=== PATIENT | male | born 1980 | race Caucasian/White ===

== ENCOUNTER 2019-05-14 16:50 | Emergency (ER) | payer SELFPAY ==
--- NOTE | 2019-05-14 18:17 | RAD REPORT ---
EXAM DESCRIPTION: RAD -Hand Left 3 View - 05/14/2019 6:10 pm CLINICAL HISTORY: Left hand pain status post injury FINDINGS: No fracture or dislocation is seen. 2 millimeter density lies along the dorsal aspect of the wrist probably chronic calcification. A fore ign body can also have this appearance and should be correlated clinically
[2019-05-14] MEDS ORDERED: LIDOCAINE 1% MPF 5 ML VIAL ONE (18:50)
[2019-05-14] MEDS ORDERED: TETANUS & DIPHTHERIA TOX,ADULT 0.5 ML VIAL ONE (19:07)
--- NOTE | 2019-05-14 20:31 | ER ---
Nurse's Notes [facility] Name: Jj Moreno Age: 38 yrs Sex: Male : 1980 Arrival Date: 05/14/2019 Time: 16:52 Bed 18 Private MD: Diagnosis: Laceration without foreign body of left middle finger without damage to nail Presentation: 05/14 17:35 Presenting complaint: Patient states: He was shutting the door to his shed and he hit aj1 his hand on a sharp piece of metal. Laceration noted to left hand, bleeding lightly. Transition of care: patient was not received from another setting of care. Onset of symptoms was May 14, 2019 at 16:00. Risk Assessment: Do you want to hurt yourself or someone else? Patient reports no desire to harm self or others. Initial Sepsis Screen: Does the patient meet any 2 criteria? No. Patient's initial sepsis screen is negative. Does the patient have a suspected source of infection? No. Patient's initial sepsis screen is negative. Care prior to arrival: None. 17:35 Method Of Arrival: Ambulatory aj1 17:35 Acuity: FARIBA 4 aj1 Triage Assessment: 17:36 General: Appears in no apparent distress. uncomfortable, Behavior is calm, cooperative, aj1 appropriate for age. Pain: Complains of pain in left hand. Neuro: Level of Consciousness is awake, alert, obeys commands. Cardiovascular: Patient's skin is warm and dry. Respiratory: Airway is patent Respiratory effort is even, unlabored, Respiratory pattern is regular, symmetrical. Injury Description: Laceration sustained to dorsal aspect of proximal phalanx of left middle finger a small amount of bleeding noted at this time. Historical: - Allergies: 17:36 No Known Allergies; aj1 - Home Meds: 17:36 None [Active]; aj1 - PMHx: 17:36 None; aj1 - PSHx: 17:36 None; aj1 - Immunization history:: Last tetanus immunization: unknown, Flu vaccine is not up to date. - Social history:: Smoking status: Patient/guardian denies using tobacco. - Ebola Screening: : Patient denies travel to an Ebola-affected area in the 21 days before illness onset. Screenin:51 Abuse screen: Denies threats or abuse. Denies injuries from another. Nutritional hb screening: No deficits noted. Tuberculosis screening: No symptoms or risk factors identified. Fall Risk None identified. Assessment: 18:51 General: Appears in no apparent distress. uncomfortable, Behavior is calm, cooperative. hb Pain: Pain currently is 8 out of 10 on a pain scale. Neuro: Level of Consciousness is awake, alert, obeys commands, Oriented to person, place, time, situation. Cardiovascular: Capillary refill < 3 seconds Patient's skin is warm and dry. Respiratory: Airway is patent Respiratory effort is even, unlabored, Respiratory pattern is regular, symmetrical. GI: No signs and/or symptoms were reported involving the gastrointestinal system. : No signs and/or symptoms were reported regarding the genitourinary system. EENT: No signs and/or symptoms were reported regarding the EENT system. Derm: Skin is pink, warm \T\ dry. Musculoskeletal: No signs and/or symptoms reported regarding the musculoskeletal system. Injury Description: Laceration sustained to left hand and dorsal aspect of proximal phalanx of left middle finger is jagged, 2.6 to 7.5 cm long. 19:45 Reassessment: Patient appears in no apparent distress at this time. Patient and/or wh family updated on plan of care and expected duration. Pain level reassessed. Patient is alert, oriented x 3, equal unlabored respirations, skin warm/dry/pink. Vital Signs: 17:36 BP 106 / 81; Pulse 92; Resp 18; Temp 97.8; Pulse Ox 95% on R/A; Weight 92.99 kg (R); aj1 Height 5 ft. 10 in. (177.80 cm) (R); Pain 8/10; 19:30 BP 124 / 82; Pulse 88; Resp 18; Pulse Ox 99% on R/A; wh 17:36 Body Mass Index 29.41 (92.99 kg, 177.80 cm) aj1 ED Course: 16:52 Patient arrived in ED. as 17:36 Triage completed. aj1 17:36 Arm band placed on Patient placed in waiting room, Patient notified of wait time. aj1 18:11 XRAY Hand LEFT 3 View In Process Unspecified. EDMS 18:39 Karlee Navarro FNP-C is PHCP. kb 18:39 Domenica Martínez MD is Attending Physician. kb 18:51 Patient has correct armband on for positive identification. Bed in low position. Call light in reach. Side rails up X 1. 18:54 Elizabeth Caruso, RN is Primary Nurse. 20:00 Assist provider with laceration repair on dorsal aspect of proximal phalanx of left wh middle finger that was between 2.6 to 7.5 cm using sutures. Set up tray. Performed by Karlee GABRIEL Dressed with 4X4s, Patient tolerated well. Patient did not have IV access during this emergency room visit. Administered Medications: 19:22 Drug: Tetanus-Diphtheria Toxoid Adult 0.5 ml {Compounding Technician: [employer] Exp: 11/28/2020. Lot #: [id number]. } Route: IM; Site: right deltoid; 20:38 Follow up: Response: No adverse reaction 20:10 Drug: Lidocaine (1 %) 2 vials {Note: Administered by Karlee Navarro DRAPERY EXAMINER.} Volume: 5 ml; Route: Infiltration; 20:38 Follow up: Response: No adverse reaction Outcome: 20:29 Discharge ordered by . kb 20:40 Discharged to home ambulatory, with family. 20:40 Condition: stable 20:40 Discharge instructions given to patient, family, Instructed on discharge instructions, follow up and referral plans. wound care, Demonstrated understanding of instructions, follow-up care, wound care. 20:41 Patient left the ED. Signatures: Dispatcher [employer] EDMS Karlee Navarro FNP-C FNP-Ckb Johnson, Angela, RN RN [facility] Bree Escalera as Elizabeth Caruso RN RN Martell Contreras Corrections: (The following items were deleted from the chart) 17:39 17:35 Presenting complaint: Patient states: He was shutting the door to his shed and he aj1 hit his hand on a sharp piece of metal. Laceration noted to right hand, bleeding lightly. aj1 17:39 17:36 Pain: Complains of pain in right hand aj aj 17:39 17:36 Injury Description: Laceration sustained to dorsal aspect of proximal phalanx of aj1 right middle finger a small amount of bleeding noted at this time. aj1
--- NOTE | 2019-05-14 20:31 | EDPHYS ---
Physician Documentation [facility] Name: Jj Moreno Age: 38 yrs Sex: Male : 1980 Arrival Date: 05/14/2019 Time: 16:52 Bed 18 Private MD: ED Physician Domenica Martínez HPI: 05/14 22:22 This 38 yrs old Male presents to ER via Ambulatory with complaints of kb Puncture Wound To Hand. 22:22 The patient or guardian reports injury, a laceration, clean. The complaints affect the kb dorsal aspect of proximal phalanx of left middle finger. Context: The problem was sustained at home, resulted from a direct blow, by a door. Onset: The symptoms/episode began/occurred just prior to arrival. Modifying factors: The symptoms are alleviated by nothing, the symptoms are aggravated by nothing. Associated signs and symptoms: The patient has no apparent associated signs or symptoms. Severity of symptoms: At their worst the symptoms were mild, moderate. The patient has not experienced similar symptoms in the past. The patient has not recently seen a physician. Pt reports he hit his hand on a piece of his metal door causing laceration to left hand. Historical: - Allergies: 17:36 No Known Allergies; aj1 - Home Meds: 17:36 None [Active]; aj1 - PMHx: 17:36 None; aj1 - PSHx: 17:36 None; aj1 - Immunization history:: Last tetanus immunization: unknown, Flu vaccine is not up to date. - Social history:: Smoking status: Patient/guardian denies using tobacco. - Ebola Screening: : Patient denies travel to an Ebola-affected area in the 21 days before illness onset. ROS: 22:22 Constitutional: Negative for fever, chills, and weight loss, Neck: Negative for injury, kb pain, and swelling, Cardiovascular: Negative for chest pain, palpitations, and edema, Respiratory: Negative for shortness of breath, cough, wheezing, and pleuritic chest pain, Abdomen/GI: Negative for abdominal pain, nausea, vomiting, diarrhea, and constipation, Back: Negative for injury and pain, MS/Extremity: Negative for injury and deformity, Neuro: Negative for headache, weakness, numbness, tingling, and seizure. 22:22 Skin: Positive for laceration(s), of the dorsal aspect of proximal phalanx of left middle finger. Exam: 22:21 Constitutional: This is a well developed, well nourished patient who is awake, alert, kb and in no acute distress. Head/Face: Normocephalic, atraumatic. ENT: Nares patent. No nasal discharge, no septal abnormalities noted. Tympanic membranes are normal and external auditory canals are clear. Oropharynx with no redness, swelling, or masses, exudates, or evidence of obstruction, uvula midline. Mucous membranes moist. Neck: Trachea midline, no thyromegaly or masses palpated, and no cervical lymphadenopathy. Supple, full range of motion without nuchal rigidity, or vertebral point tenderness. No Meningismus. Chest/axilla: Normal chest wall appearance and motion. Nontender with no deformity. No lesions are appreciated. Cardiovascular: Regular rate and rhythm with a normal S1 and S2. No gallops, murmurs, or rubs. Normal PMI, no JVD. No pulse deficits. Respiratory: Lungs have equal breath sounds bilaterally, clear to auscultation and percussion. No rales, rhonchi or wheezes noted. No increased work of breathing, no retractions or nasal flaring. Abdomen/GI: Soft, non-tender, with normal bowel sounds. No distension or tympany. No guarding or rebound. No evidence of tenderness throughout. Back: No spinal tenderness. No costovertebral tenderness. Full range of motion. MS/ Extremity: Pulses equal, no cyanosis. Neurovascular intact. Full, normal range of motion. Neuro: Awake and alert, GCS 15, oriented to person, place, time, and situation. Cranial nerves II-XII grossly intact. Motor strength 5/5 in all extremities. Sensory grossly intact. Cerebellar exam normal. Normal gait. 22:22 Skin: injury, laceration(s), the wound is approximately 4 cm(s), of the dorsal aspect kb of proximal phalanx of left middle finger, that can be described as clean, no foreign body, irregular, without bleeding. Vital Signs: 17:36 BP 106 / 81; Pulse 92; Resp 18; Temp 97.8; Pulse Ox 95% on R/A; Weight 92.99 kg (R); aj1 Height 5 ft. 10 in. (177.80 cm) (R); Pain 8/10; 19:30 BP 124 / 82; Pulse 88; Resp 18; Pulse Ox 99% on R/A; 17:36 Body Mass Index 29.41 (92.99 kg, 177.80 cm) [facility] Laceration: 19:07 Wound Repair of 4cm ( 1.6in ) subcutaneous laceration to dorsal aspect of proximal kb phalanx of left middle finger. Irregularly shaped.. Distal neuro/vascular/tendon intact. Anesthesia: Wound infiltrated with 6 mls of 1% lidocaine. Wound prep: Extensive cleansing with hibiclenz by me, Wound irrigation with saline by nd. Skin closed with 6 5-0 Prolene using simple sutures and sterile technique. Dressed with finger splint. Patient tolerated well. MDM: 18:41 Patient medically screened. kb 19:02 ED course: Lidocaine injected into wound, then hand placed in 50/50 solution of NS and kb betadine to soak.. 19:18 Data reviewed: vital signs, nurses notes. Data interpreted: Pulse oximetry: on room air kb is 95 %. Interpretation: normal. 20:25 Counseling: I had a detailed discussion with the patient and/or guardian regarding: the kb historical points, exam findings, and any diagnostic results supporting the discharge/admit diagnosis, radiology results, the need for outpatient follow up, a family practitioner, to return to the emergency department if symptoms worsen or persist or if there are any questions or concerns that arise at home. 05/14 17:38 Order name: XRAY Hand LEFT 3 View; Complete Time: 18:38 [facility] 05/14 18:48 Order name: Prolene, Sutures; Complete Time: 18:54 kb 05/14 18:48 Order name: Dressing - Wound; Complete Time: 18:54 kb 05/14 18:48 Order name: Gloves, Sterile; Complete Time: 18:53 kb 05/14 18:48 Order name: Setup Suture Tray; Complete Time: 18:53 kb 05/14 20:13 Order name: Finger Splint; Complete Time: 20:32 kb Administered Medications: 19:22 Drug: Tetanus-Diphtheria Toxoid Adult 0.5 ml {Blown Film Extrusion Operator: [employer]. Exp: 11/28/2020. Lot #: [id number]. } Route: IM; Site: right deltoid; 20:38 Follow up: Response: No adverse reaction 20:10 Drug: Lidocaine (1 %) 2 vials {Note: Administered by Karlee Navarro DOPER OPERATOR.} Volume: 5 ml; wh Route: Infiltration; 20:38 Follow up: Response: No adverse reaction wh Disposition: 05/14/19 20:29 Discharged to Home. Impression: Laceration without foreign body of left middle finger without damage to nail. - Condition is Stable. - Discharge Instructions: Laceration Care, Adult, [id number]. - Medication Reconciliation Form, Thank You Letter, Antibiotic Education, Prescription Opioid Use, Work release form form. - Follow up: Emergency Department; When: As needed; Reason: Worsening of condition. Follow up: Private Physician; When: 2 - 3 days; Reason: Recheck today's complaints, Continuance of care, Re-evaluation by your physician. Signatures: Dispatcher [employer] EDMS Karlee Navarro, BUSINESS SOLUTIONS ARCHITECT-C BUSINESS SOLUTIONS ARCHITECT-nAgelic Maldonado RN RN aj1 Martell Contreras Corrections: (The following items were deleted from the chart) 20:27 19:07 Wound Repair of subcutaneous laceration. Distal neuro/vascular/tendon intact. kb Anesthesia: Wound infiltrated with 6 mls of 1% lidocaine. kb 20:41 20:29 05/14/2019 20:29 Discharged to Home. Impression: Laceration without foreign body wh of left middle finger without damage to nail. Condition is Stable. Forms are Medication Reconciliation Form, Thank You Letter, Antibiotic Education, Prescription Opioid Use. Follow up: Emergency Department; When: As needed; Reason: Worsening of condition. Follow up: Private Physician; When: 2 - 3 days; Reason: Recheck today's complaints, Continuance of care, Re-evaluation by your physician. kb 22:22 22:21 Constitutional: This is a well developed, well nourished patient who is awake, kb alert, and in no acute distress. Head/Face: Normocephalic, atraumatic. ENT: Nares patent. No nasal discharge, no septal abnormalities noted. Tympanic membranes are normal and external auditory canals are clear. Oropharynx with no redness, swelling, or masses, exudates, or evidence of obstruction, uvula midline. Mucous membranes moist. Neck: Trachea midline, no thyromegaly or masses palpated, and no cervical lymphadenopathy. Supple, full range of motion without nuchal rigidity, or vertebral point tenderness. No Meningismus. Chest/axilla: Normal chest wall appearance and motion. Nontender with no deformity. No lesions are appreciated. Cardiovascular: Regular rate and rhythm with a normal S1 and S2. No gallops, murmurs, or rubs. Normal PMI, no JVD. No pulse deficits. Respiratory: Lungs have equal breath sounds bilaterally, clear to auscultation and percussion. No rales, rhonchi or wheezes noted. No increased work of breathing, no retractions or nasal flaring. Abdomen/GI: Soft, non-tender, with normal bowel sounds. No distension or tympany. No guarding or rebound. No evidence of tenderness throughout. Back: No spinal tenderness. No costovertebral tenderness. Full range of motion. MS/ Extremity: Pulses equal, no cyanosis. Neurovascular intact. Full, normal range of motion. Neuro: Awake and alert, GCS 15, oriented to person, place, time, and situation. Cranial nerves II-XII grossly intact. Motor strength 5/5 in all extremities. Sensory grossly intact. Cerebellar exam normal. Normal gait. kb
[2019-05-14 23:09] VITALS: TEMP 97.8
[2019-05-14 23:10] VITALS: BP 124/82; O2SAT 99
== END 2019-05-14 20:41 | disposition home or self-care (01) ==
LOC: ER 16:50
PROC: 0JQK0ZZ Repair Left Hand Subcutaneous Tissue and Fascia, Open Approach (ICD-10-PCS; principal; 2019-05-14)
DX: S61.213A Laceration without foreign body of left middle finger without damage to nail, initial encounter (principal); W26.8XXA Contact with other sharp object(s), not elsewhere classified, initial encounter; Y93.9 Activity, unspecified; Y92.009 Unspecified place in unspecified non-institutional (private) residence as the place of occurrence of the external cause; Z23 Encounter for immunization
CPT/HCPCS: 90471; 90714; 99283